=== PATIENT | male | born 1985 | race Caucasian/White ===

== ENCOUNTER 2016-02-25 17:34 | Emergency (ER) | payer MEDICAID ==
[2016-02-25] MEDS ORDERED: levETIRAcetam INJ 500 MG in SODIUM CHLORIDE 0.9% 100ML 100 ML IV STA (19:14)
[2016-02-25] MEDS ORDERED: SODIUM CHLORIDE 0.9% 1,000 ML IV ONE (19:14)
[2016-02-25] MEDS ORDERED: KETOROLAC 60 MG/2 ML VIAL IVP STA (19:15)
[2016-02-25] MEDS ORDERED: KETOROLAC 30 MG/ML VIAL ONE ×2 (19:48→19:49)
[2016-02-25] MEDS ORDERED: HYDROcod/ACETAM 5/325 MG TABLET PO STA (21:06)
[2016-02-25] MEDS ORDERED: diazePAM 5 MG TABLET PO STA (21:06)
[2016-02-25] MEDS ORDERED: diazePAM 5 MG TABLET PO ONE ×2 (21:13→21:17)
[2016-02-25] MEDS ORDERED: HYDROcod/ACETAM 5/325 MG TABLET ONE (21:13)
[2016-02-25] MEDS ORDERED: HYDROcod/ACET 5/325 Prepack 6 PO ONE ×2 (21:56→21:59)
== END 2016-02-25 22:13 | disposition home or self-care (01) ==
DX: R56.9 Unspecified convulsions (principal); S50.01XA Contusion of right elbow, initial encounter; S70.01XA Contusion of right hip, initial encounter; S00.512A Abrasion of oral cavity, initial encounter; W19.XXXA Unspecified fall, initial encounter; M54.5 Low back pain; G89.29 Other chronic pain
CPT/HCPCS: 36415; 70450; 80053; 80306; 80320; 81003; 82550; 83690; 83735; 84146; 84443; 85025; 96374; 96375; 99284; A9270

== ENCOUNTER 2016-04-25 15:21 | Emergency (ER) | payer MEDICAID ==
[2016-04-25] MEDS ORDERED: LIDOCAINE PATCH 5% TOP STA (16:06)
[2016-04-25] MEDS ORDERED: CYCLOBENZAPRINE 10 MG TABLET PO STA (16:06)
[2016-04-25] MEDS ORDERED: KETOROLAC 60 MG/2 ML VIAL IM STA (16:06)
[2016-04-25] MEDS ORDERED: LIDOCAINE PATCH 5% TOP ONE (16:12)
[2016-04-25] MEDS ORDERED: KETOROLAC 60 MG/2 ML VIAL ONE (16:12)
[2016-04-25] MEDS ORDERED: CYCLOBENZAPRINE 10 MG TABLET PO ONE (16:12)
== END 2016-04-25 16:53 | disposition home or self-care (01) ==
DX: M54.41 Lumbago with sciatica, right side (principal); G89.29 Other chronic pain
CPT/HCPCS: 96372; 99283; 99284; A9270

== ENCOUNTER 2016-05-23 17:00 | Emergency (ER) | payer MEDICAID ==
[2016-05-23] MEDS ORDERED: ACETAMINOPHEN 325 MG TABLET PO ONE (17:36)
[2016-05-23] MEDS ORDERED: IBUPROFEN 400 MG TABLET PO ONE (17:36)
[2016-05-23] MEDS: IBUPROFEN 400 MG TABLET PO STA (17:38)
[2016-05-23] MEDS: ACETAMINOPHEN 325 MG TABLET PO STA (17:38)
--- NOTE | 2016-05-23 17:45 | XRAY Preliminary Report ---
Exam: XR Hand 3 View RT IMPRESSION: Normal right hand radiography. [facility] SITE ID: [id number]
--- NOTE | 2016-05-23 17:48 | XRAY Report ---
EXAM: RIGHT HAND RADIOGRAPHY EXAM DATE: 05/23/2016 05:28 PM. CLINICAL HISTORY: Injury. COMPARISON: None. TECHNIQUE: 3 views. FINDINGS: Bones: Normal. No fractures or bone lesions. Joints: Normal. No subluxations. Soft Tissues: No asymmetric soft tissue swelling. IMPRESSION: Normal right hand radiography. [facility] Referring Provider Line: [phone] SITE ID: [id number]
--- NOTE | 2016-05-23 18:01 | ED Physician Documentation ---
History of Present Illness - Stated complaint Stated Complaint: R HAND INJ - Chief complaint Chief Complaint: Ext Problem - Additonal information Additional information: hx from pt 30 male left handed but uses both hands at work smashed right hand between couch and cemenet R index pain and bruising over PIP Review of Systems Musculoskeletal: reports: Extremity pain PD PAST MEDICAL HISTORY - Past Medical History Cardiovascular: None Respiratory: None Neuro: None Musculoskeletal: Chronic back pain - Past Surgical History Past Surgical History: Yes Ortho: Other - Present Medications Home Medications: Ambulatory Orders Medication Instructions Recorded Confirmed Amitriptyline [Elavil] 0 mg PO DAILY 04/25/16 05/23/16 Ibuprofen [Motrin] 400 mg PO Q6H PRN #30 tablet 04/25/16 05/23/16 - Allergies Allergies/Adverse Reactions: Allergies Allergy/AdvReac Type Severity Reaction Status Date / Time steroid injection AdvReac Unknown Uncoded 05/23/16 17:10 - Social History Does the pt smoke?: No Smoking Status: Never smoker Does the pt drink ETOH?: No Does the pt have substance abuse?: No - Immunizations Immunizations are current?: Yes - POLST Patient has POLST: No PD ED PE NORMAL - Vitals Vital signs reviewed: Yes - Extremities Extremities: Other (no deformity, R index TTP with some swelling and ecchymosis to PIP, TTP mid and prox phalange, MSV intact though pain limits ROM, + cap refill) Results - Vitals Vitals: Vital Signs - 24 hr 05/23/16 17:05 Temperature 36.8 C Heart Rate 95 Respiratory 15 Rate Blood Pressure 130/87 H O2 Saturation 98 Oxygen O2 Source Room air Departure - Departure Disposition: 01 Home, Self Care Clinical Impression: Finger contusion Qualifiers: Encounter type: initial encounter Finger: index finger Damage to nail status: without damage Laterality: right Qualified Code(s): S60.021A - Contusion of right index finger without damage to nail, initial encounter Condition: Good Instructions: ED Contusion Hand Comments: Thankfully the xray shows no fracture Wear the splint for support, apply ice, take motrin as needed Recommend no use of that hand for three days to allow time to heal - I wrote a note for work Please follow up with your PMD about your blood pressure - it was high today Forms: Activity restrictions
[2016-05-23 18:12] VITALS: BP 128/87
== END 2016-05-23 18:11 | disposition home or self-care (01) ==
LOC: ED 17:00
DX: S60.021A Contusion of right index finger without damage to nail, initial encounter (principal); S67.190A Crushing injury of right index finger, initial encounter; W23.0XXA Caught, crushed, jammed, or pinched between moving objects, initial encounter; Y99.0 Civilian activity done for income or pay
CPT/HCPCS: 99282; 99283

== ENCOUNTER 2016-07-02 14:32 | Emergency (ER) | payer MEDICAID ==
--- NOTE | 2016-07-02 16:53 | ED Physician Documentation ---
PD HPI SEIZURE - Stated complaint Stated Complaint: SEIZURE - Chief complaint Chief Complaint: Neuro - History obtained from History obtained from: Patient - History of Present Illness Timing - onset: How many days ago (last few days with several seizures, according to friend. Did hit his head with an episodes few days ago and has had headache. Has contusion of scalp. No fevers.) Witnessed: Witnessed Number of seizures: Lasted minutes Description of seizure activity: Generalized Injury during seizure: Head injury (few days ago, not today) History of seizures: No: Known seizure disorder (prior recent seizures in past 4 -5 months, but did not have any for few months) Contributing factors: No: Changed meds, EtOH withdrawal, Benzo withdrawal, Fever Similar symptoms before: No diagnosis, Work up / diagnostics (had labs with head CT in February. Lab did show elevated prolactin at that time, suggestive of true seizure. Was to see PMD and get further workup after that visit, but patient says no further eval/referrals when he saw PCP. Has seen PCP and Ortho for shoulder pain and had steroid injection few weeks ago.) Review of Systems Constitutional: denies: Fever, Chills Nose: denies: Rhinorrhea / runny nose, Congestion Throat: denies: Sore throat Cardiac: denies: Chest pain / pressure, Palpitations, Pedal edema, Calf pain Respiratory: denies: Dyspnea, Cough GI: denies: Abdominal Pain, Vomiting, Diarrhea Skin: denies: Rash, Lesions Neurologic: reports: Generalized weakness, Headache (for several days). denies : Focal weakness, Numbness Psychiatric: denies: Depressed, Suicidal Endocrine: denies: Weight loss, Weight gain, Easy bruising / bleeding PD PAST MEDICAL HISTORY - Past Medical History Cardiovascular: None Respiratory: None Neuro: None Endocrine/Autoimmune: None Musculoskeletal: Chronic back pain - Past Surgical History Past Surgical History: Yes Ortho: Other - Present Medications Home Medications: Ambulatory Orders Medication Instructions Recorded Confirmed Amitriptyline [Elavil] 0 mg PO DAILY 04/25/16 05/23/16 Ibuprofen [Motrin] 400 mg PO Q6H PRN #30 tablet 04/25/16 05/23/16 Levetiracetam [Keppra] 500 mg PO BID #60 tablet 07/02/16 Naproxen [Naprosyn] 500 mg PO BID PRN #20 tablet 07/02/16 - Allergies Allergies/Adverse Reactions: Allergies Allergy/AdvReac Type Severity Reaction Status Date / Time steroid injection AdvReac Unknown Uncoded 05/23/16 17:10 - Social History Does the pt smoke?: No Smoking Status: Never smoker Does the pt drink ETOH?: No Does the pt have substance abuse?: No - Family History Family history: reports: Non contributory - Immunizations Immunizations are current?: Yes - POLST Patient has POLST: No PD ED PE NORMAL - Vitals Vital signs reviewed: Yes - General General: Alert and oriented X 3, Well developed/nourished - HEENT HEENT: Ears normal, Moist mucous membranes, Pharynx benign, Other (back of head with mild swelling and tender spot. tongue without abrasions. ) - Neck Neck: Supple, no meningeal sign, No bony TTP, No adenopathy - Cardiac Cardiac: RRR, No murmur - Respiratory Respiratory: No respiratory distress, Clear bilaterally - Abdomen Abdomen: Normal bowel sounds, Soft, Non tender, Non distended - Derm Derm: Normal color, Warm and dry - Extremities Extremities: No tenderness to palpate. No: Normal ROM s pain (left shoulder hurts with ROM, but has been bothering him. 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, No motor deficit, No sensory deficit, Normal speech, Other - Psych Psych: Normal mood, Normal affect Results - Vitals Vitals: Vital Signs - 24 hr 07/02/16 07/02/16 07/02/16 14:46 17:29 18:41 Temperature 36.4 C L 36.3 C L Heart Rate 69 59 L 60 Respiratory 18 16 15 Rate Blood Pressure 144/91 H 102/72 122/80 O2 Saturation 99 98 100 07/02/16 20:05 Temperature 36.8 C Heart Rate 62 Respiratory 16 Rate Blood Pressure 116/71 O2 Saturation 99 Oxygen O2 Source Room air - Labs Labs: Laboratory Tests 07/02/16 07/02/16 07/02/16 17:36 17:36 17:36 WBC 6.2 RBC 4.51 L Hgb 13.4 L Hct 40.1 L MCV 89.0 MCH 29.7 MCHC 33.4 RDW 13.9 Plt Count 256 MPV 7.6 Neut # 2.9 Lymph # 2.5 [place] # 0.6 Eos # 0.3 Baso # 0.0 Absolute Nucleated RBC 0.00 Nucleated RBCs 0.0 Sodium 139 Potassium 3.9 Chloride 104 Carbon Dioxide 30 Anion Gap 5.0 L BUN 11 Creatinine 0.6 Estimated GFR (MDRD) 158 Glucose 112 H Lactic Acid 0.7 Calcium 9.0 Magnesium 1.9 Total Bilirubin 0.5 AST 18 ALT 13 Alkaline Phosphatase 46 Total Protein 6.3 L Albumin 3.8 Globulin 2.5 Albumin/Globulin Ratio 1.5 Lipase 18 L PD MEDICAL DECISION MAKING - ED course Complexity details: reviewed old records (had had concern for seizures on visit February, and patient says he went to PMD but the concern for seizures was not addressed, though perhaps side effect from meds/pain meds, according to patient. ), considered differential (has description from friend of seizure-like activity , and has some bruising mild injuries. Does not seem like pseudoseizures. I talked with on-call [facility] (Kerrie) and asked if they can do Neurology consult/ eval for seizures. ), d/w patient Departure - Departure Disposition: Home, Self Care Clinical Impression: Seizure Mild concussion Qualifiers: Encounter type: initial encounter Loss of consciousness presence/duration: without LOC Qualified Code(s): S06.0X0A - Concussion without loss of consciousness, initial encounter Condition: Stable Record reviewed to determine appropriate education?: Yes Instructions: ED Concussion Follow-Up: [facility] [Provider Group] Prescriptions: Levetiracetam [Keppra] 500 mg PO BID #60 tablet Naproxen [Naprosyn] 500 mg PO BID PRN #20 tablet PRN Reason: Pain Comments: Drink lots of fluids. Naproxen twice daily. Add Tylenol if needed for pains. Keppra twice daily as directed. Follow up with [facility], call tomorrow for appt and referral to Neurologist. Forms: Activity restrictions Discharge Date/Time: 07/02/16 19:51
[2016-07-02] MEDS ORDERED: HYDROcod/ACETAM 5/325 MG TABLET PO STA (17:23)
[2016-07-02] MEDS ORDERED: levETIRAcetam 250 MG TABLET PO STA (17:23)
[2016-07-02] MEDS ORDERED: IBUPROFEN 600 MG TABLET PO STA (17:23)
[2016-07-02] MEDS ORDERED: levETIRAcetam 250 MG TABLET ONE (17:31)
[2016-07-02] MEDS ORDERED: HYDROcod/ACETAM 5/325 MG TABLET ONE (17:31)
[2016-07-02] MEDS ORDERED: IBUPROFEN 600 MG TABLET PO ONE (17:32)
[2016-07-02 17:44] LABS: BASOPHILS % (AUTO) 0.7 %; EOSINOPHILS # (AUTO) 0.3 10^3/uL (0.0-0.7); EOSINOPHILS % (AUTO) 4.6 %; HCT - HEMATOCRIT 40.1 % (42.0-52.0); HGB - HEMOGLOBIN 13.4 g/dL (14.0-18.0); LYMPHOCYTES # (AUTO) 2.5 10^3/uL (1.5-3.5); LYMPHOCYTES % (AUTO) 39.5 %; MEAN CORPUSCULAR HEMOGLOBIN 29.7 pg (27.0-31.0); MEAN CORPUSCULAR HGB CONC 33.4 g/dL (32.0-36.0); MEAN PLATELET VOLUME 7.6 fL (7.4-11.4); MONOCYTES # (AUTO) 0.6 10^3/uL (0.0-1.0); MONOCYTES % (AUTO) 9.2 %; NEUTROPHILS # (AUTO) 2.9 10^3/uL (1.5-6.6); RED BLOOD COUNT 4.51 10^6/uL (4.70-6.10); RED CELL DISTRIBUTION WIDTH 13.9 % (12.0-15.0); UNCORRECTED WHITE BLOOD COUNT 6.2 x10^3/uL; WHITE BLOOD COUNT 6.2 x10^3/uL (4.8-10.8)
[2016-07-02 17:58] LABS: ALBUMIN/GLOBULIN RATIO 1.5 (1.0-2.2); BILIRUBIN,TOTAL 0.5 mg/dL (0.2-1.0); CREATININE 0.6 mg/dL (0.6-1.2); MAGNESIUM 1.9 mg/dL (1.7-2.8); POTASSIUM 3.9 mmol/L (3.5-5.0); TOTAL PROTEIN 6.3 g/dL (6.7-8.2)
--- NOTE | 2016-07-02 18:21 | CT Preliminary Report ---
Exam: CT Head W/O IMPRESSION: Normal head CT. [facility] SITE ID: [id number]
--- NOTE | 2016-07-02 18:24 | CT Report ---
EXAM: CT HEAD EXAM DATE: 07/02/2016 05:58 PM. CLINICAL HISTORY: Fell and struck head today. COMPARISON: None. TECHNIQUE: Multiaxial CT images were obtained from the foramen magnum to the vertex. IV contrast: Non e. Reformats: Coronal. In accordance with CT protocol optimization, one or more of the following dose reduction techniques w ere utilized for this exam: automated exposure control, adjustment of mA and/or KV based on patient s ize, or use of iterative reconstructive technique. FINDINGS: Parenchyma: No intraparenchymal hemorrhage. No evidence of mass, midline shift, or CT findings of inf arction. Hull-white differentiation is distinct. Extraaxial Spaces: Normal for age. No subdural or epidural collections identified. Ventricles: Normal in size and position. Sinuses: Imaged paranasal sinuses, orbits, and mastoids show no significant abnormality. Bones: No evidence of fracture or calvarial defect. Other: None. IMPRESSION: Normal head CT. [facility] Referring Provider Line: [phone] SITE ID: [id number]
[2016-07-02 20:09] VITALS: BP 116/71
== END 2016-07-02 19:51 | disposition home or self-care (01) ==
LOC: ED 14:32
DX: R56.9 Unspecified convulsions (principal); S06.0X0A Concussion without loss of consciousness, initial encounter; W01.0XXA Fall on same level from slipping, tripping and stumbling without subsequent striking against object, initial encounter
CPT/HCPCS: 36415; 70450; 80053; 83605; 83690; 83735; 85025; 99284; A9270